=== PATIENT | male | born 1930 | race Two or more races ===

== ENCOUNTER 2017-10-09 07:43 | Outpatient (CLI) | payer OTHER ==
[~2017-10-09 07:43] MED LIST: AMLODIPINE BESY10 MG; HYDROCHLOROTHIA25 MG; MEMANTINE HCL10 MG
== END 2017-10-09 07:53 | disposition home or self-care (01) ==
LOC: LAB 07:43
DX: E11.65 Type 2 diabetes mellitus with hyperglycemia (principal); E78.2 Mixed hyperlipidemia

== ENCOUNTER 2017-11-21 14:49 | Outpatient (CLI) | payer OTHER | END 2017-11-21 15:01 | disposition home or self-care (01) | LOC: RAD 501 14:49 | DX: J32.8 Other chronic sinusitis (principal); J45.998 Other asthma ==

== ENCOUNTER 2017-12-19 07:29 | Outpatient (CLI) | payer OTHER | END 2017-12-19 08:00 | disposition home or self-care (01) | LOC: LAB 07:29 | DX: E11.65 Type 2 diabetes mellitus with hyperglycemia (principal); D64.89 Other specified anemias; D68.8 Other specified coagulation defects; E03.8 Other specified hypothyroidism ==

== ENCOUNTER 2017-12-19 08:38 | Outpatient (CLI) | payer OTHER | END 2017-12-19 08:41 | disposition home or self-care (01) | LOC: RAD 08:38 | DX: K56.609 Unspecified intestinal obstruction, unspecified as to partial versus complete obstruction (principal) ==

== ENCOUNTER 2017-12-21 09:43 | Outpatient (CLI) | payer OTHER | END 2017-12-21 09:56 | disposition home or self-care (01) | LOC: LAB 09:43 | DX: E11.65 Type 2 diabetes mellitus with hyperglycemia (principal); D64.89 Other specified anemias; D68.8 Other specified coagulation defects; E03.8 Other specified hypothyroidism ==

== ENCOUNTER → 2018-03-14 | Outpatient (CLI) | payer OTHER | END | disposition home or self-care (01) | LOC: LAB 07:43 | DX: I10 Essential (primary) hypertension (principal); R73.09 Other abnormal glucose ==

== ENCOUNTER 2018-03-21 07:18 | Outpatient (CLI) | payer OTHER | END 2018-03-21 07:33 | disposition home or self-care (01) | LOC: LAB 07:18 | DX: E11.65 Type 2 diabetes mellitus with hyperglycemia (principal); N39.0 Urinary tract infection, site not specified; D68.8 Other specified coagulation defects; N40.1 Benign prostatic hyperplasia with lower urinary tract symptoms; D64.89 Other specified anemias; E03.8 Other specified hypothyroidism; E78.2 Mixed hyperlipidemia ==

== ENCOUNTER 2018-07-23 10:30 | Emergency (ER) | payer OTHER ==
[~2018-07-23] VITALS: Ht 160 cm; Wt 65.3 kg
[2018-07-23] MEDS ORDERED: FLUOXETINE HCL20 MG PO (10:55)
[2018-07-23] MEDS ORDERED: AMLODIPINE BESYL5 MG PO (10:56)
[2018-07-23] MEDS ORDERED: ROSUVASTATIN CA20 MG PO (10:56)
[2018-07-23] MEDS ORDERED: RESTORIL15 MG PO (10:56)
[2018-07-23] MEDS ORDERED: MEMANTINE HCL10 MG PO (10:56)
[2018-07-23] MEDS ORDERED: CLONAZEPAM0.5 MG PO (10:57)
== END 2018-07-23 13:12 | disposition home or self-care (01) ==
LOC: ER 10:30
DX: S01.112A Laceration without foreign body of left eyelid and periocular area, initial encounter (principal); W45.8XXA Other foreign body or object entering through skin, initial encounter; Y93.89 Activity, other specified; Y92.098 Other place in other non-institutional residence as the place of occurrence of the external cause; Y99.8 Other external cause status

== ENCOUNTER 2018-07-31 15:25 | Emergency (ER) | payer OTHER ==
[~2018-07-31] VITALS: Ht 152.4 cm; Wt 66.2 kg
[~2018-07-31 15:25] MED LIST changes: +AMLODIPINE BESYL5 MG PO; +CLONAZEPAM0.5 MG PO; +FLUOXETINE HCL20 MG PO; +MEMANTINE HCL10 MG PO; +RESTORIL15 MG PO; +ROSUVASTATIN CA20 MG PO
== END 2018-07-31 16:48 | disposition home or self-care (01) ==
LOC: ER 15:25
DX: Z48.02 Encounter for removal of sutures (principal)

== ENCOUNTER 2019-03-29 13:02 | Emergency (ER) | payer OTHER ==
[~2019-03-29] VITALS: Ht 162.6 cm; Wt 65.8 kg
[2019-03-29] MEDS ORDERED: CRESTOR10 MG (13:21)
[2019-03-29] MEDS ORDERED: GABAPENTIN100 MG (13:22)
[2019-03-30] MEDS ORDERED: INTESTINEX680 M1 PO (06:28)
[2019-03-30] MEDS ORDERED: METAMUCIL POWD575 G1 PO (06:28)
== END 2019-03-30 07:42 | disposition home or self-care (01) ==
LOC: ER 13:02
DX: K59.09 Other constipation (principal); K56.41 Fecal impaction; R10.84 Generalized abdominal pain; R11.11 Vomiting without nausea; G30.9 Alzheimer's disease, unspecified

== ENCOUNTER 2019-05-04 10:20 | Inpatient (IN) | payer OTHER ==
[~2019-05-04] VITALS: Ht 157.5 cm; Wt 70.3 kg
[~2019-05-04 10:20] MED LIST changes: +CRESTOR10 MG; +GABAPENTIN100 MG; +INTESTINEX680 M1 PO; +METAMUCIL POWD575 G1 PO
--- NOTE | 2019-05-04 10:34 | NUR ---
SE RECIBE PTE. MASCULINO EN AMBULANCIA PROMINENTE DE [facility]. FAMILIAR DE PTE. REFIERE LADO BILL DE LA MARCK INCHADO , TOS NICHO FIEBRE DESHIDRATACION Y COMENZO CON VOMITO UN LIEN Y DIARREAS. LE REALIZARON UN CBC QUE ESTA ALTERADO. SE UBICA EN QI 13 CON BARANDAS ELEVADAS.
--- NOTE | 2019-05-04 10:50 | NUR ---
SE ROEINTA PTE SOBRE TRATAMIENTO EL CUAL REFIERE ENTENDER. SE NOTIFICA A PERSONAL DE RX PLACA PORTABLE PENDIENTE.
--- NOTE | 2019-05-05 | NUR ---
SE RECIBE PACIENTE EN QI CON MEDIAS DE SEGURIDAD, LUCE ALERTA CONSCIENTE Y ORIENTADO X3 EN COMPANIA DE FAMILIAR. JOSUE DE YOCASTA AL MOMENTO IV. PATENTES EN OPHELIA KHAN. PTE EN ESPERA DE [place]IST[place] EN CONSULTA POR MEDICINA INTERNA.
--- NOTE | 2019-05-05 00:22 | NUR ---
SE ADMINISTRA MEDICAMENTO MING ORDEN MEDICA BAJO MEDIDA ASEPTICAS.
--- NOTE | 2019-05-05 07:00 | NUR ---
PACIENTE HIPOACTIVO, PRESENTA BUEN PATRON RESPIRATORIO Y NO PRESENTA SENALES DE DOLOR. CANALIZADO EN BRAZO LT PATENTE Y JOSUE DE S/S DE FLEBITIS E INFILTRACION, RECIBIENDO 0.9% NSS A 150 ML/HR. PENDIENTE EVALUACION DE MEDICINA INTERNA CON DRA BEGUM POR PTP Y MASA EN BRENDA.
== END 2019-05-10 14:41 | disposition home or self-care (01) | DRG 982 ==
LOC: ER 10:20 → MEDJ 05-05 11:33 → MEDI 05-05 11:33 → MEDJ 05-07 17:01 → MEDI 05-07 17:01 → MEDJ 05-09 18:52
PROVIDERS: ADMIT Specialist
PROC: BW2FY0Z Computerized Tomography (CT Scan) of Neck using Other Contrast, Unenhanced and Enhanced (ICD-10-PCS; 2019-05-05)
PROC: 0GB Endocrine System, Excision (ICD-10-PCS; principal; 2019-05-06)
PROC: 3E0F7GC Introduction of Other Therapeutic Substance into Respiratory Tract, Via Natural or Artificial Opening (ICD-10-PCS; 2019-05-06)
DX: K11.21 Acute sialoadenitis (principal); T80.211A Bloodstream infection due to central venous catheter, initial encounter; I67.89 Other cerebrovascular disease; K11.23 Chronic sialoadenitis; F03.90 Unspecified dementia, unspecified severity, without behavioral disturbance, psychotic disturbance, mood disturbance, and anxiety; D46.A Refractory cytopenia with multilineage dysplasia; D69.49 Other primary thrombocytopenia; E78.00 Pure hypercholesterolemia, unspecified; G30.8 Other Alzheimer's disease; F02.80 Dementia in other diseases classified elsewhere, unspecified severity, without behavioral disturbance, psychotic disturbance, mood disturbance, and anxiety; Z74.01 Bed confinement status; I13.10 Hypertensive heart and chronic kidney disease without heart failure, with stage 1 through stage 4 chronic kidney disease, or unspecified chronic kidney disease; N18.3 Chronic kidney disease, stage 3 (moderate); E88.09 Other disorders of plasma-protein metabolism, not elsewhere classified